=== PATIENT | female | born 1995 | race Caucasian/White ===

== ENCOUNTER 2022-09-16 11:24 | Outpatient (CLI) | payer OTHER, SELFPAY | END 2022-09-16 11:25 | disposition home or self-care (01) | PROVIDERS: PCP Family Medicine; Visit Provider Obstetrics & Gynecology | DX: O20.9 Hemorrhage in early pregnancy, unspecified (principal) | CPT/HCPCS: 84702; 86850; 86900; 86901 ==

== ENCOUNTER 2022-09-18 16:15 | Outpatient (CLI) | payer OTHER, SELFPAY | END 2022-09-18 16:16 | disposition home or self-care (01) | LOC: NFLDREF 09-19 07:01 | PROVIDERS: PCP Family Medicine; Referring Provider Family Medicine; Visit Provider Obstetrics & Gynecology | DX: O20.9 Hemorrhage in early pregnancy, unspecified (principal) | CPT/HCPCS: 84702 ==

== ENCOUNTER 2022-10-02 11:16 | Outpatient (CLI) | payer MEDICAID, SELFPAY | END 2022-10-02 11:17 | disposition home or self-care (01) | PROVIDERS: PCP Family Medicine; Visit Provider Obstetrics & Gynecology | DX: N96 Recurrent pregnancy loss (principal) | CPT/HCPCS: 82232; 82947; 83001; 84439; 84443; 85610; 85613; 85730; 86147; 88262 ==

== ENCOUNTER 2022-11-05 13:38 | Outpatient (CLI) | payer OTHER, SELFPAY ==
--- NOTE | 2022-11-05 14:00 | CRLHL7_ITS ---
For Patients: As a result of the Century Cures Act, medical imaging exams and procedure reports are released immediately into your electronic medical record. You may view this report before your referring provider. If you have questions, please contact your health care provider. CLINICAL HISTORY: Recurrent loss TECHNIQUE: Real time warren scale imaging of the fetus was performed as well as color Doppler and spectral Doppler analysis of the umbilical artery. FINDINGS: The uterus measures 7.5 x 3.9 x 4 5 centimeters endometrium measures 6 millimeters. Right ovary measures 2.3 x 1.2 x 1.2 centimeters. Left ovary appears 3.2 x 1.8 x 2 centimeters. Both ovaries are normal blood flow on color Doppler. IMPRESSION: Normal exam. Dictated by Sara Holbrook MD @ 11/06/2022 7:28:29 AM (Electronically Signed)
== END 2022-11-05 13:39 | disposition home or self-care (01) ==
LOC: US 13:40
PROVIDERS: PCP Family Medicine; Visit Provider Obstetrics & Gynecology
DX: N96 Recurrent pregnancy loss (principal)
CPT/HCPCS: 76830

== ENCOUNTER 2022-12-30 14:18 | Outpatient (CLI) | payer OTHER, SELFPAY | END 2022-12-30 14:19 | disposition home or self-care (01) | LOC: NFLDREF 01-03 15:51 | PROVIDERS: PCP Family Medicine; Visit Provider Obstetrics & Gynecology | DX: N96 Recurrent pregnancy loss (principal); D68.61 Antiphospholipid syndrome | CPT/HCPCS: 82232; 85610; 85613; 85730; 86147 ==

== ENCOUNTER 2023-03-04 15:00 | Outpatient (RCR) | payer OTHER, MEDICAID, SELFPAY ==
[2023-02-18 11:57] LABS: Basophils Absolute Auto 0.02 K/uL (0.00-0.30); Basophils Percent Auto 0.3 % (0.0-3.0); Eosinophils Absolute Auto 0.18 K/uL (0.00-0.50); Eosinophils Percent Auto 2.4 % (0.0-7.0); Hematocrit 40.9 % (33.0-51.0); Hemoglobin* 13.7 gm/dL (12.0-16.0); Immature Granulocytes Abs Auto 0.01 K/uL (0.00-0.30); Immature Granulocytes Pct Auto 0.1 %; Lymphocytes Percent Auto 25.8 % (20-44); Mean Corpuscular HGB Conc 34 gm/dL (32-36); Mean Corpuscular Hemoglobin 31 pg (26-34); Mean Corpuscular Volume 93 fL (80-100); Monocytes Percent Auto 5.2 % (0.0-11.0); Neutrophils Absolute Auto 4.87 K/uL (1.7-7.0); Neutrophils Percent Auto 66.2 % (42.0-72.0); Platelet Count* 183 K/uL (140-440); Red Blood Count 4.42 m/uL (4.00-5.20); White Blood Count* 7.36 K/uL (4.50-11.00)
[2023-02-18 12:01] LABS: Slide Review Reflex No
[2023-02-18 12:33] LABS: Iron* 113 ug/dL (37-170)
[2023-02-18 12:57] LABS: Total Iron Binding Capacity 293 ug/dL (265-497)
[2023-02-18 13:10] LABS: Ferritin* 24.6 ng/mL (6.24-137.0)
[2023-02-18 13:25] LABS: Vitamin B12* 665 pg/mL (243-894)
[2023-02-18 13:32] LABS: Percent Iron Saturation 39 % (20-50)
[2023-02-19 17:42] LABS: Folate, Serum >22.3 ng/mL (>=5.9)
[2023-02-20 00:42] LABS: B2Glycoprotein 1, IgG Antibody <10 SGU (<=20); B2Glycoprotein 1, IgM Antibody <10 SMU (<=20)
[2023-02-21 13:33] LABS: FACV Specimen Whole Blood; Factor V Leiden (F5) Mutation Negative
[2023-02-21 15:15] LABS: PT PCR Specimen Whole Blood; Prothrombin(F2)G20210A Variant Negative
[2023-02-21 16:37] LABS: Protein C Functional 104 % (83-168); Protein S Functional 68 % (57-131)
[2023-02-21 20:01] LABS: Antithrombin, Enzymatic 110 % (76-128)
== END 2023-08-17 23:59 | disposition home or self-care (01) ==
LOC: CCIC 15:00
PROVIDERS: PCP Family Medicine; Visit Provider Internal Medicine Hematology & Oncology
DX: D68.59 Other primary thrombophilia (principal); D68.61 Antiphospholipid syndrome; N96 Recurrent pregnancy loss
CPT/HCPCS: 36415; 81240; 81241; 82607; 82728; 82746; 83540; 83550; 84702; 85025; 85300; 85303; 85306; 86146; 99202; 99205; 99213; 99214; G0463

== ENCOUNTER 2023-03-05 13:54 | Outpatient (CLI) | payer MEDICAID, SELFPAY ==
--- NOTE | 2023-03-05 14:00 | CRLHL7_ITS ---
For Patients: As a result of the Century Cures Act, medical imaging exams and procedure reports are released immediately into your electronic medical record. You may view this report before your referring provider. If you have questions, please contact your health care provider. INDICATION: First trimester dating. TECHNIQUE: Ultrasound OB pelvis transvaginal. Real-time warren-scale imaging of the pelvis was performed. COMPARISON: None. FINDINGS: Intrauterine gestational sac: Present with mean sac diameter of 0.8 centimeters. Embryo present: No. Embryo cardiac activity: NA. [place] rump Length: NA. Sonographic gestational age: 5 weeks and 4 days. Yolk sac: Not visualized. Perigestational hemorrhage: There may be a trace perigestational hemorrhage measuring 0.6 x 0.5 x 0.2 centimeters.. Ovaries and adnexae: Within normal limits measuring 2.8 x 0.9 x 1.4 centimeters on the right and 3.8 x 2.2 x 2.7 centimeters on the left. Likely corpus luteal cyst in the left ovary. Simple appearing cystic structures measuring 1.1 and 0.4 centimeters adjacent to the left ovary in the left adnexa/posterior cul-de-sac. IMPRESSION: 1. An intrauterine gestational sac is present with mean sac diameter of 0.8 centimeters, suggestive of a 5 week and 4 day gestation. No embryo is visualized, which may be secondary to early gestational age. Recommend repeat examination in 14 days. 2. Likely corpus luteal cyst in the left kidney. 3. Simple appearing cysts adjacent to the left ovary in the left adnexa/posterior cul-de-sac measuring 1.1 and 0.4 centimeters. Dictated by Kai French MD @ 03/05/2023 3:08:59 PM (Electronically Signed)
== END 2023-03-05 13:55 | disposition home or self-care (01) ==
LOC: US 13:55
PROVIDERS: PCP Family Medicine; Visit Provider Obstetrics & Gynecology
DX: Z34.91 Encounter for supervision of normal pregnancy, unspecified, first trimester (principal); O34.81 Maternal care for other abnormalities of pelvic organs, first trimester; O26.831 Pregnancy related renal disease, first trimester; Z3A.01 Less than 8 weeks gestation of pregnancy
CPT/HCPCS: 76817

== ENCOUNTER 2023-03-06 15:46 | Outpatient (CLI) | payer OTHER, MEDICAID, SELFPAY | END 2023-03-06 15:47 | disposition home or self-care (01) | LOC: NFLDREF 03-11 07:58 | PROVIDERS: PCP Family Medicine; Referring Provider Family Medicine; Visit Provider Obstetrics & Gynecology | DX: O20.9 Hemorrhage in early pregnancy, unspecified (principal) | CPT/HCPCS: 84702; 84703 ==

== ENCOUNTER 2023-03-11 11:54 | Outpatient (CLI) | payer OTHER, MEDICAID, SELFPAY ==
--- NOTE | 2023-03-11 12:15 | CRLHL7_ITS ---
For Patients: As a result of the Century Cures Act, medical imaging exams and procedure reports are released immediately into your electronic medical record. You may view this report before your referring provider. If you have questions, please contact your health care provider. INDICATION: Follow up viability COMPARISON: 03/05/2023 TECHNIQUE: Real-time warren-scale imaging of the pelvis was performed. FINDINGS: Sonographic imaging demonstrates a single living intrauterine gestation. The embryo demonstrates a regular cardiac rate measuring 110 beats per minute. The embryo`s crown-rump length measurement of 0.4 cm corresponds to a gestational age of 6 weeks 0 days with a sonographic due date of 11/04/2023. There is a normal-appearing yolk sac. There are no gross abnormalities noted within the embryo at this early state of development. The gestational sac has a normal appearance. There is no evidence of a perigestational hemorrhage. The amount of fluid within the sac appears appropriate for gestational age. The cervix is closed. The myometrium appears normal. The ovaries are of normal size. Corpus luteal cyst left ovary. There are no suspicious fluid collections noted in the cul-de-sac. IMPRESSION: Single living intrauterine with sonographic gestational age 6 weeks 0 days and sonographic due date 11/04/2023. Dictated by Dar Wright MD @ 03/11/2023 12:37:12 PM (Electronically Signed)
== END 2023-03-11 11:55 | disposition home or self-care (01) ==
LOC: US 11:54
PROVIDERS: PCP Family Medicine; Visit Provider Registered Nurse
DX: Z34.91 Encounter for supervision of normal pregnancy, unspecified, first trimester (principal); Z3A.01 Less than 8 weeks gestation of pregnancy
CPT/HCPCS: 76817; 86703; 86706; 86803; 86850; 86900; 86901; 87086; 87340; 87491; 87591

== ENCOUNTER 2023-03-11 14:49 | Outpatient (CLI) | payer OTHER, MEDICAID, SELFPAY | END 2023-03-11 14:50 | disposition home or self-care (01) | LOC: NFLDREF 03-12 10:47 | PROVIDERS: PCP Family Medicine; Visit Provider Registered Nurse | DX: Z34.81 Encounter for supervision of other normal pregnancy, first trimester (principal) | CPT/HCPCS: 86592; 86703; 86704; 86706; 86762; 86787; 86803; 86850; 86900; 86901; 87086; 87340; 87491; 87591 ==

== ENCOUNTER 2023-05-07 10:11 | Outpatient (CLI) | payer OTHER, SELFPAY | END 2023-05-07 10:12 | disposition home or self-care (01) | PROVIDERS: PCP Family Medicine; Visit Provider Obstetrics & Gynecology | DX: Z34.92 Encounter for supervision of normal pregnancy, unspecified, second trimester (principal); Z3A.14 14 weeks gestation of pregnancy; D68.61 Antiphospholipid syndrome | CPT/HCPCS: 82565; 82570; 84156; 84450; 84460 ==

== ENCOUNTER 2023-05-15 15:00 | Outpatient (CLI) | payer MEDICAID, SELFPAY | END 2023-05-15 15:01 | disposition home or self-care (01) | LOC: NFLDREF 05-16 06:36 | PROVIDERS: PCP Family Medicine; Referring Provider Family Medicine; Visit Provider Obstetrics & Gynecology | DX: O99.112 Other diseases of the blood and blood-forming organs and certain disorders involving the immune mechanism complicating pregnancy, second trimester (principal); D68.61 Antiphospholipid syndrome | CPT/HCPCS: 84450; 84460 ==

== ENCOUNTER 2023-05-22 15:32 | Outpatient (CLI) | payer OTHER, SELFPAY | END 2023-05-22 15:33 | disposition home or self-care (01) | LOC: NFLDREF 05-26 07:09 | PROVIDERS: PCP Family Medicine; Referring Provider Family Medicine; Visit Provider Obstetrics & Gynecology | DX: R74.01 Elevation of levels of liver transaminase levels (principal) | CPT/HCPCS: 80074; 80076; 80306 ==

== ENCOUNTER 2023-05-22 15:33 | Outpatient (CLI) | payer OTHER, SELFPAY ==
--- NOTE | 2023-05-22 16:00 | US_ITS ---
Patient: HEIDI CRUZ Facility:?[facility] Patient ID:?[id number] Site Patient ID:?[id number]. Site :?[id number] Study:?US-Abdomen RUQ-05/22/2023 4:26:19 PM Ordering Physician:?Mallory Velásquez Final Report: INDICATION: Abnormal liver function tests. TECHNIQUE: Conventional two-dimensional grayscale ultrasound of the right upper quadrant. COMPARISON: None. FINDINGS: The gallbladder is normal, with no evidence of stones. No gallbladder wall thickening or pericholecystic fluid is demonstrated. The patient is reportedly not tender over the gallbladder. No biliary ductal dilation is evident. The common bile duct measures 4 mm. The liver is normal in size, shape and echogenicity. The pancreas is within normal limits. The right kidney is unremarkable. The visualized portion of the abdominal aorta and inferior vena cava are negative. IMPRESSION: Negative right upper quadrant ultrasound. Dictated by Reece Paz MD @ 05/25/2023 7:44:56 AM Signed by:?Reece Paz MD @05/25/2023 7:44:56 AM (Electronic Signature)
== END 2023-05-22 15:34 | disposition home or self-care (01) ==
LOC: US 15:33
PROVIDERS: PCP Family Medicine; Visit Provider Obstetrics & Gynecology
DX: R74.01 Elevation of levels of liver transaminase levels (principal)
CPT/HCPCS: 76705; 80076; 80306

== ENCOUNTER 2023-06-26 04:14 | Emergency (ER) | payer OTHER, SELFPAY ==
[2023-06-26 04:25] VITALS: BP 121/77; PULSE 82; RESP 20; TEMP 36.6; O2SAT 99; BMI 27.0
--- NOTE | 2023-06-26 04:26 | ED_ITS ---
HPI - General Adult General Chief complaint: Dizziness/Vertigo Stated complaint: 21 wks /dizziness Time Seen by Provider: 06/26/23 04:26 History of Present Illness HPI narrative: Pt aox4, ABCs intact. Pt arrives with for evaluation of dizziness that suddenly started at 0200 when she rolled over in bed. She states that everything is just spinning and she feels lightheaded. She states that she only has symptoms when she lays down. 28-year-old woman presenting to the emergency department with concern of dizziness. Things are spinning and she feels lightheaded. Worse with movement. Settles when she is still. 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 This would be about 2-1/2 hours prior to arrival in the emergency department. With further questioning and demonstration during interview, worse when tips her head somewhat back but mostly when rotated to the right. No complaint of headache or loss of vision. Underlying history of POTS. Related Data Home Medications ?Medication ?Instructions ?Recorded ?Confirmed vitamins no.68-iron 28 1 cap PO QDAY 10/02/22 07/18/23 mg-folate no.6 1 mg-dha 400 mg capsule acetaminophen 325 mg capsule 325 mg PO ONCE PRN 02/18/23 07/18/23 (Tylenol) aspirin 81 mg tablet,delayed 81 mg PO QDAY 02/18/23 07/18/23 release (Adult Aspirin Regimen) enoxaparin 40 mg/0.4 mL 40 mg subcut QDAY 03/11/23 07/18/23 subcutaneous syringe (Lovenox) Previous Rx's ?Medication ?Instructions ?Recorded promethazine 12.5 mg tablet 12.5 mg PO Q6H PRN nausea and 04/09/23 vomiting #30 tabs Allergies Allergy/AdvReac Type Severity Reaction Status Date / Time Sulfa (Sulfonamide Allergy Severe eye Verified 07/18/23 15:02 Antibiotics) swelling from sulfa drops Review of Systems Status of ROS: Reports: 6 or more systems reviewed and unremarkable except as noted in History and below [facility] Medical History POTS (postural orthostatic tachycardia syndrome) ?G90.A - Postural orthostatic tachycardia syndrome [POTS] (ICD-10) Surgical History Varicose vein of leg ?I83.90 - Asymptomatic varicose veins of unspecified lower extremity (ICD-10) H/O dilation and curettage ?Z98.890 - Other specified postprocedural states (ICD-10) [place] teeth extracted ?K08.409 - Partial loss of teeth, unspecified cause, unspecified class (ICD- 10) Family History Maternal Grandfather Bladder cancer Maternal Grandmother Multiple sclerosis Family/Other Epilepsy Social History What is your current living situation?: I presently have a place to live Problems where you live: no known problems In the past 12 months, utilities in danger of being shut off: no In past 12 months, lack of transportation kept you from medical appts, meetings, work, or getting things needed for daily living: no How hard is it for you to pay for the very basics like food, housing, medical care, and heating: not applicable In the past 12 mos, have been you worried that your food would run out before you had money to buy more?: never true In the past 12 mos, the food you bought just didn't last and you didn't have money to buy more?: never true Smoking Status: Never smoker How often do you have a drink containing alcohol: never AUDIT-C Alcohol total score: 0 Non-prescribed substance use: denies use How often does anyone, including family, friends and others, physically hurt you : never How often does anyone, including family, friends and others, insult or talk down to you: never How often does anyone, including family, friends and others, threaten you with harm: never How often does anyone, including family, friends and others, scream or curse at you: never Little interest or pleasure in doing things: not at all Feeling down, depressed, or hopeless: not at all Exam Narrative: Exam Narrative: Pleasant. Appears a little uncomfortable. Skin is warm and dry. Does not sound to be congested in the nasopharynx in particular. No facial swelling erythema or tenderness. It TMs appear to be clear of fluid. Cranial nerves 2- 12 intact. Neck is supple. Heart in for regular rate and rhythm. Is breathing easily. No nystagmus. Rotational movement of the head to the right reportedly reproduces some of this dizziness. HINTS was not attempted. Reportedly worse also when transitioning to a laying position. Const: Documenting provider has reviewed patient's vital signs: yes Course Vital Signs Vital signs: Initial Vital Signs Temperature 98 F 06/26/23 04:25 Temperature Source Temporal Artery Scan 06/26/23 04:25 Pulse Rate 82 06/26/23 04:25 Pulse Rhythm Regular 06/26/23 04:25 Pulse Strength 3+ Normal 06/26/23 04:25 Respiratory Rate 20 06/26/23 04:25 Blood Pressure 121/77 06/26/23 04:25 Blood Pressure Mean 91 06/26/23 04:25 Blood Pressure Position Sitting 06/26/23 04:25 Pulse Oximetry 99 06/26/23 04:25 Oxygen Delivery Method Room Air 06/26/23 04:25 Vital Signs Temperature 98 F 06/26/23 04:25 Pulse Rate 82 06/26/23 04:25 Respiratory Rate 20 06/26/23 04:25 Blood Pressure 121/77 06/26/23 04:25 Pulse Oximetry 99 06/26/23 04:25 Oxygen Delivery Method Room Air 06/26/23 04:25 Temperature 98 F 06/26/23 04:25 Pulse Rate 82 06/26/23 04:25 Respiratory Rate 20 06/26/23 04:25 Blood Pressure 121/77 06/26/23 04:25 Pulse Oximetry 99 06/26/23 04:25 Oxygen Delivery Method Room Air 06/26/23 04:25 Medical Decision Making MDM Narrative Medical decision making narrative: I am reassured by the improvement of the symptoms when still and clearly exacerbated with motion and repeatedly reproducible. I think it is less likely that this is central. complicates treatment a little bit as I think Valium or possibly other benzodiazepine would be most effective here. Does have antihistamine promethazine available as antiemetic. This could be alternative I suppose to meclizine and may be helpful in this dizziness which seems to have settled somewhat at this point. I think can be treated outpatient. Kari maneuvers might be helpful here particularly with reliably reproducible exacerbation of dizziness. See patient discharge plan for further discussion/plan Medical Records Medical records reviewed: Yes I reviewed the patient's medical records Discharge Plan Discharge Clinical Impression: Benign paroxysmal positional vertigo Patient Disposition: Home w/ Parent or Adult Condition: Stable Additional Instructions: Stay well-hydrated. Take care in transitions. You might consider taking your promethazine 3 times daily regularly over the next 2-3 days. Since your symptoms are to the right side with movement, try these Kari maneuvers focused on the right side as indicated in the title on your handouts. You might also benefit from follow-up with physical therapy. Could get referral from your doctor. Be seen for intractable vomiting, marked headache, symptoms not resolving at rest. Prescriptions: No Action enoxaparin [Lovenox] 40 mg/0.4 mL syringe 40 mg subcut QDAY promethazine 12.5 mg tablet 12.5 mg PO Q6H PRN (Reason: nausea and vomiting) Qty: 30 0RF [id number] no6-dha 28 mg iron- 1 mg-400 mg capsule 1 cap PO QDAY aspirin [Adult Aspirin Regimen] 81 mg tablet,delayed release (DR/EC) 81 mg PO QDAY acetaminophen [Tylenol] 325 mg capsule 325 mg PO ONCE PRN Follow Up/Referrals: Kavya Daniel MD [Primary Care Provider] - Stand Alone Forms: [employer] Info Instructions
== END 2023-06-26 05:06 | disposition home or self-care (01) ==
LOC: ED 05:02
PROVIDERS: Emergency Provider Family Medicine; PCP Family Medicine
DX: H81.13 Benign paroxysmal vertigo, bilateral (principal)
CPT/HCPCS: 99283; 99284

== ENCOUNTER 2023-08-15 09:00 | Outpatient (CLI) | payer OTHER, SELFPAY | END 2023-08-15 09:01 | disposition home or self-care (01) | LOC: NFLDREF 08-17 03:04 | PROVIDERS: PCP Family Medicine; Referring Provider Family Medicine; Visit Provider Obstetrics & Gynecology | DX: Z34.93 Encounter for supervision of normal pregnancy, unspecified, third trimester (principal); Z3A.28 28 weeks gestation of pregnancy | CPT/HCPCS: 76816; 86592 ==

== ENCOUNTER 2023-08-18 06:00 | Outpatient (RCR) | payer OTHER, SELFPAY | END 2024-02-14 23:59 | disposition home or self-care (01) | LOC: CCIC 06:00 | PROVIDERS: PCP Family Medicine; Visit Provider Internal Medicine Hematology & Oncology | DX: D68.59 Other primary thrombophilia (principal); D68.61 Antiphospholipid syndrome; N96 Recurrent pregnancy loss; Z79.82 Long term (current) use of aspirin ==

== ENCOUNTER 2023-09-12 08:55 | Outpatient (CLI) | payer OTHER, SELFPAY ==
--- NOTE | 2023-09-12 09:15 | CRLHL7_ITS ---
For Patients: As a result of the Century Cures Act, medical imaging exams and procedure reports are released immediately into your electronic medical record. You may view this report before your referring provider. If you have questions, please contact your health care provider. INDICATION: antiphospholipid syndrome TECHNIQUE: Real time warren scale imaging of the fetus was performed. COMPARISON: 08/15/2023 FINDINGS: Sonographic imaging demonstrates a single living intrauterine gestation. Fetus demonstrates a regular cardiac rate of 141 beats per minute. Fetus has a breech position. The placenta lies posteriorly. Amniotic fluid volume appears normal and there is a single deepest pocket of 3.8 cm. The estimated weight is 2125gm which lies at the 58th %. On the prior OB ultrasound dated 08/15/2023 the estimated weight was at the 86th percentile. BPD 67th percentile. HC 62nd percentile. AC 45th percentile. FL 73rd percentile. The fetus was active and demonstrated normal breathing movements. There was normal flexion and extension of the trunk and extremities. IMPRESSION: Normal biophysical profile score 8/8. Sonographic gestational age 34 weeks 3 days and a sonographic due date 10/21/2023. Sonographic age 13 days ahead of the clinical age. Estimated weight 58th percentile. Abdominal circumference 45th percentile. Dictated by Dar Wright MD @ 09/12/2023 11:10:37 AM (Electronically Signed)
== END 2023-09-12 08:56 | disposition home or self-care (01) ==
LOC: US 08:55
PROVIDERS: PCP Family Medicine; Visit Provider Obstetrics & Gynecology
DX: O26.893 Other specified pregnancy related conditions, third trimester (principal); D68.61 Antiphospholipid syndrome; Z3A.34 34 weeks gestation of pregnancy
CPT/HCPCS: 76816; 76819

== ENCOUNTER 2023-09-19 07:58 | Outpatient (CLI) | payer OTHER, SELFPAY ==
--- NOTE | 2023-09-19 08:15 | CRLHL7_ITS ---
For Patients: As a result of the Century Cures Act, medical imaging exams and procedure reports are released immediately into your electronic medical record. You may view this report before your referring provider. If you have questions, please contact your health care provider. INDICATION: Antiphospholipid antibody syndrome COMPARISON: 09/12/2023 TECHNIQUE: Real time warren scale imaging of the fetus was performed. Without non-stress testing. FINDINGS: Sonographic imaging demonstrates a single living intrauterine gestation. Fetus demonstrates a regular cardiac rate of 142 beats per minute. Fetus has a breech position. The amniotic fluid volume appears normal and there is a single deepest pocket measurement of 3.4 cm. The fetus was active and demonstrated normal breathing movements. There was normal flexion and extension of the trunk and extremities. IMPRESSION: Normal biophysical profile score of 8 out of 8. Dictated by Dar Wright MD @ 09/19/2023 10:14:56 PM (Electronically Signed)
== END 2023-09-19 07:59 | disposition home or self-care (01) ==
LOC: US 07:59
PROVIDERS: PCP Family Medicine; Visit Provider Obstetrics & Gynecology
DX: O26.899 Other specified pregnancy related conditions, unspecified trimester (principal); D68.61 Antiphospholipid syndrome
CPT/HCPCS: 76819

== ENCOUNTER 2023-09-26 09:05 | Outpatient (CLI) | payer OTHER, SELFPAY ==
--- NOTE | 2023-09-26 09:15 | CRLHL7_ITS ---
For Patients: As a result of the Century Cures Act, medical imaging exams and procedure reports are released immediately into your electronic medical record. You may view this report before your referring provider. If you have questions, please contact your health care provider. INDICATION: antiphospholipid syndrome COMPARISON: 09/19/2023 TECHNIQUE: Real time warren scale imaging of the fetus was performed. Without non-stress testing. FINDINGS: Sonographic imaging demonstrates a single living intrauterine gestation. Fetus demonstrates a regular cardiac rate of 135 beats per minute. Fetus has a breech position. The amniotic fluid volume appears normal and there is a single deepest pocket measurement of 3.0 cm. The fetus was active and demonstrated normal breathing movements. There was normal flexion and extension of the trunk and extremities. IMPRESSION: Normal biophysical profile score of 8 out of 8. Dictated by Dar Wright MD @ 09/26/2023 10:13:50 AM (Electronically Signed)
== END 2023-09-26 09:06 | disposition home or self-care (01) ==
LOC: US 09:05
PROVIDERS: PCP Family Medicine; Visit Provider Obstetrics & Gynecology
DX: Z34.90 Encounter for supervision of normal pregnancy, unspecified, unspecified trimester (principal); D68.61 Antiphospholipid syndrome
CPT/HCPCS: 76819

== ENCOUNTER 2023-10-03 11:15 | Outpatient (CLI) | payer OTHER, SELFPAY | END 2023-10-03 11:16 | disposition home or self-care (01) | LOC: NFLDREF 10-05 06:41 | PROVIDERS: PCP Family Medicine; Referring Provider Family Medicine; Visit Provider Obstetrics & Gynecology | DX: O41.03X0 Oligohydramnios, third trimester, not applicable or unspecified (principal); Z3A.35 35 weeks gestation of pregnancy | CPT/HCPCS: 76819; 87081; 87653 ==

== ENCOUNTER 2023-10-04 11:35 | Outpatient (CLI) | payer OTHER, SELFPAY ==
[2023-10-04 11:54] VITALS: BP 120/71; PULSE 83
[2023-10-04 11:56] VITALS: RESP 18; TEMP 36.6
[2023-10-04] MEDS: BETAMETHASONE SOD PHOS/ACETATE 6 MG/ML ML 12 MG IM (12:12)
--- NOTE | 2023-10-04 15:39 | PC.OBNST ---
NST Note NST Note Start: 10/04/23 12:01 Freq: ONCE Status: Active Protocol: Document 10/04/23 12:40 MICHELLE (Rec: 10/04/23 15:39 JRMarina [id number]) NST Note 3 Para (# of births) 0 EDC 11/03/23 Gestational Age In Weeks & Days 35 Weeks & 5 Days Patient Presented with Complaint(s) of Decreased movement Other Complaints Oligohydramnios and Antiphospholipid Reactive Yes Appropriate for Gestational Age Yes RN Lorenzo Carty RN Date 10/04/23 Reactive Yes Appropriate for Gestational Age Yes NAIMA Martinez RN Date 10/04/23 OB NST charge Yes Complete NST Note via Write Note Yes The provider's electronic signature indicates the NST is reactive/appropriate for gestational age. *Note to provider: If an addendum is required, open the patient's chart and click on the note under the Nurse/Allied Health tab.
== END 2023-10-04 12:40 | disposition home or self-care (01) ==
LOC: OB CLI 11:36 → OB 11:45
PROVIDERS: PCP Family Medicine; Visit Provider Obstetrics & Gynecology
DX: O36.8130 Decreased fetal movements, third trimester, not applicable or unspecified (principal); Z3A.35 35 weeks gestation of pregnancy
CPT/HCPCS: 59025; G0463; J0702

== ENCOUNTER 2023-10-06 05:12 | Inpatient (IN) | payer OTHER, SELFPAY ==
[2023-10-06] VITALS (36 sets, daily range): BP systolic 89–121; BP diastolic 51–81; PULSE 50–88; RESP 15–20; TEMP 36.4–36.9; O2SAT 95–99; BMI 30.2
[2023-10-06] MEDS: LACTATED RINGERS 1000 ML 1,000 ML 1200 ML IV ×3 (05:15→08:18)
[2023-10-06 05:58] LABS: Basophils Absolute Auto 0.02 K/uL (0.00-0.30); Basophils Percent Auto 0.2 % (0.0-3.0); Eosinophils Absolute Auto 0.04 K/uL (0.00-0.50); Eosinophils Percent Auto 0.4 % (0.0-7.0); Hematocrit 35.9 % (33.0-51.0); Hemoglobin* 12.2 gm/dL (12.0-16.0); Immature Granulocytes Pct Auto 2.8 %; Lymphocytes Absolute Auto 2.52 K/uL (0.90-2.90); Lymphocytes Percent Auto 23.2 % (20-44); Mean Corpuscular HGB Conc 34 gm/dL (32-36); Mean Corpuscular Hemoglobin 32 pg (26-34); Mean Corpuscular Volume 95 fL (80-100); Monocytes Percent Auto 11.1 % (0.0-11.0); Neutrophils Absolute Auto 6.77 K/uL (1.7-7.0); Neutrophils Percent Auto 62.3 % (42.0-72.0); Platelet Count* 162 K/uL (140-440); RDW Coefficient of Variation % 12.7 % (11.5-15.5); Red Blood Count 3.79 m/uL (4.00-5.20); White Blood Count* 10.85 K/uL (4.50-11.00)
[2023-10-06 06:00] LABS: Slide Review Reflex No
--- NOTE | 2023-10-06 07:18 | W.PM.LDBA ---
Subjective History of Present Illness Time Seen by Provider: 07:18 Date Seen: 10/06/23 Narrative: Patient is being admitted to Labor and Delivery for schedule delivery due to oligohydramnios diagnosed on 10/03/23 and persistent breech presentation. She is a 28 year old at 36.0 weeks gestation. Her full history and physical was dictated by Dr. Velásquez on 10/03/23. Please see this for details. S/p BMZ benefit. Last Lovenox Friday Morning. Now 24 hr from last dose. No interval change since last clinic visit. Active movement. Denies Ctx, LOF, vaginal bleeding or abnormal vaginal discharge. BSUS this AM confirmed tucker breech position. SDP 1.6 cm. Specific Issues/Plans G 3 P 0020 : Jin 1. Antiphospholipid antibody syndrome. Continue daily baby aspirin. Referral to perinatology placed. Advised patient to begin Lovenox 40 mg daily. Recommend level 2 ultrasound at 20 weeks Recommend growth ultrasound between 28 and 34 weeks Twice weekly testing to begin at 32 weeks: Testing Form completed Obtain baseline pre-e labs: Done 05/06, within normal limits aside from AST (44) > AST 67 on recheck SSA/SSB antibodies obtained at MFM visit on 04/22/23: [] Level II ultrasound on 06/04/23: EFW 87%tile, AC 62%tile. Posterior placenta. 3 vessel cord. MVP 6.1 cm. Cervix 4.16 cm. No anomalies. IOL at 39 weeks given timing of discontinuation of Lovenox for regional anesthesia administration # [place] at 35w4d > planned delivery at 36w0d GA. BMZ given. 2. Father of baby with epilepsy. Referral placed to perinatology 3. History of to losses. Invited her to schedule more frequent visits if needed. 4.MFM on 04/22/23: 12w 1d. Normal US. Normal NT. Posterior placenta. NIPT completed: low risk, XX 04/29 Offer AFP 15-20wks: Declined Comprehensive US recommended at 18wks: No anomalies commonly detected by ultrasound were identified. EFW 87th percentile, AC at the 62nd percentile. No previa. Three-vessel cord. MVP 6.1 cm. Cervix 4.16 cm. 5. Transaminitis - AM curbsided MFM-for-U on 05/20 (Dr. Jeronimo) 05/22/23 f/u LFTs, hepatitis panel, UDS - all normal f/u RUQ US - Normal will hold for now due to normal labs - pt is asymptomatic consider 6. Persistent breech malpresentation at 34 weeks - continue to reassess at upcoming US Rh Positive: No rhogam Flu: Administered on 03/11/2023 Covid: Completed in boosted x1. Recommended booster. Patient declines for now. Tdap: 08/28/23 hgb: 09/19/23 US - 08/15/23: EFW 86%tile, AC 56%tile, SDP 2.8 cm. OB - Problem Based A/P Additional Plan (1) Breech presentation: Status: Acute (2) Oligohydramnios: Status: Acute Plan - The patient was consented for section and blood. She understands that the four main categories of risk include pain, bleeding, infection, and damage to surrounding structures. Intraoperative pain will be manage with spinal anesthesia or epidural anesthesia. If that those are not effective or not appropriate for the clinical situation, general anesthesia will be administered. Immediately postop, TAP block will be performed. Throughout her recovery course, she will have on PO pain medications such as ibuprofen, Tylenol, and oxycodone. Regarding infection, she understands that we will be delivering appropriate antibiotics, however that the risk of infection following section still is approximately 5%. She understands that though the risk is very low that there is always a risk of damage to the bladder, uterus, ovaries, fallopian tubes, bowels, ureters, or even the fetus. She understands that most injuries can be addressed at the time of surgery, however, such an injury may require additional surgeries to fix. Lastly, she understands that a section carries a risk of bleeding, and that while this bleeding can be addressed with multiple medical and surgical modalities (including hysterectomy), that there is the possibility of needing a blood transfusion. Lastly, she understands that a section does increase risks for future pregnancies and deliveries including, but not limited to, the risk of uterine rupture or placenta accreta. I discussed with that there is a higher risk of respiratory issues due to persistent breech, , and delivery. She will need anticoagulation . - Hgb/plt: 12.2/162 - PT/INR: 0.99 - APTT: 25 - Fibrinogen: 418 - T&S: A+, antibody negative - Plan: Will proceed with planned delivery for persistent breech presentation and oligohydramnios at 36 weeks. OB Exam Physical Exam Vital signs: Temp Pulse BP Pulse Ox 97.6 F 88 118/71 96 10/06/23 06:11 10/06/23 05:59 10/06/23 05:59 10/06/23 06:00 Narrative: Physical exam: General: No acute distress Psych: Alert and oriented x4, full affect HEENT: Normocephalic, atraumatic. Erythema of the left conjunctiva from infection. Currently on erythromycin Lungs: Unlabored breathing Abdomen: Soft, no tenderness, rebound, or guarding, no masses. Multiple ecchymoses in various states of healing from Lovenox injection. Breasts: no nodules or masses, no nipple discharge, no axillary adenopathy Lower extremities: No edema or erythema Pelvic exam: Deferred
[2023-10-06 07:19] LABS: INR 0.99 (0.91-1.10); Partial Thromboplastin Time* 25 Seconds (23-33); Prothrombin Time 13.7 Seconds
[2023-10-06 07:27] LABS: Fibrinogen* 418 mg/dL (200-450)
[2023-10-06] MEDS: CEFAZOLIN 2 GM INJ IVP (07:30)
--- NOTE | 2023-10-06 08:21 | P.OBPRC_ITS ---
Procedure Time Seen by Provider: 07:30 Date of procedure: 10/06/23 Pre-op diagnosis: 1. Malpresentation - tucker breech 2. Oligohydramnios 3. Maternal anti phospholipid syndrome Post-op diagnosis: same Procedure Done: Global Will [facility] bill your pro fee for this procedure?: Yes Urine Output (mL): 300 Procedure Description: DELIVERY BY SECTION Date of Service: 10/06/23 Delivery time: 743 Summary: Admitted for scheduled primary delivery at 36.0 weeks due to tucker breech presentation and oligohydramnios, primary lower uterine transverse section, Pfannenstiel, Closed with sutures, QBL 271 cc, No complications, Findings: Normal uterus, bilateral ovaries and right fallopian tube. Subcentimeter paratubal cyst on left fallopian tube. 7/8, weight 2640 g. Primary Indication: 1. Malpresentation - tucker breech 2. Oligohydramnios 3. Maternal anti phospholipid syndrome Procedures: Primary Lower uterine transverse section Specimens Removed: Placenta Surgeon: Kim Ribeiro MD Brim Ironer Hand: RANDEE Wilson Anesthesia: Spinal, TAP Report: Prophylactic antibiotic, 2 g of Ancef was given before patient was taken to OR. After arrival to the operating room patient was placed in the supine position with left lateral tilt after administration of spinal anesthesia. Laparotomy A pfannenstiel incision was made through the anterior abdominal wall with #10 scalpel approximately 2 cm above the pubic symphysis. The incision was extended sharply with the #10 scalpel through the subcutaneous tissue to the level of fascia. The fascia was entered sharply with a #10 scalpel (Pfannenstiel) in the midline and extended in semi-elliptical fashion with bluntly. The rectus muscles were in the midline bluntly with digits. The peritoneum was then entered bluntly. The peritoneal incision was then extended superiorly and inferiorly under direct visualization with care being taken to avoid bladder and bowel. No adhesions were noted. The peritoneal incision was enlarged bluntly by lateral traction from the surgeon's and promotions assistant sales marketing's hand. Elton retractor was inserted into the abdomen. Delivery A bladder flap was not developed as bladder was low off the lower uterine segment. A low transverse hysterotomy was made then with #10 scalpel and extended laterally and cephalad with fingers in a low transverse fashion with Manu Stevenson technique with care being taken to avoid injury to the fetus. The amniotic cavity (membrane) was then entered with spontaneous rupture of membrane, and the amniotic fluid was noted to be clear. buttocks were palpated and delivered gradually through the hysterotomy fundal pressure was continue in both legs were extended using the Pinard maneuver. With gentle pressure the legs and body gradually delivered once the scapula could be seen that the baby was gently rotated and both arms were delivered using the loveset maneuver. Maintaining head flexion, head was delivered without difficulty using the [id number]-[id number]-[id number] maneuver. With delivery of the baby, no extension was noted. Baby handed off to pediatric team for assessment after delivery. Placenta was delivered spontaneously with steady traction on cord and manual separation of placenta from uterine wall. Closure Uterine cavity was cleaned after placental delivery with lap sponge x 3. The hysterotomy was closed in two layers with stitches using 0 vicryl with continuous locking stitches and 0 monocryl in a continuous non locking manner. One [id number] was placed at the right uterine angle. Hemostasis was achieved as needed with electrocautery and Christiano applied x1. The ovaries/tubes/uterine surface were evaluated. Findings noted above. Elton retractor removed and hemostasis was confirmed again. Fascia was closed with running stitches using 0 vicryl. Subcutaneous layer was irrigated. Hemostasis was checked for and found to be adequate. The subcutaneous layer was closed with running 2-0 chromic sutures. The skin was closed with monocryl subcuticular sutures. The incision was cleaned, exofin applied and Mepilex dressing placed. The procedure considered terminate at this time. Intraoperative Complications: None QBL: 271 cc Uterotonics: 30u of pitocin Disposition: The patient tolerated the procedure well. She was recovered in Obstetric PACU f or close monitoring in stable condition, with a contracted uterus and normal transvaginal bleeding. The was sent to mother's bedside. The placenta was sent to pathology due to delivery, oligohydramnios, maternal antiphospholipid syndrome on Lovenox during . Debrief with OR team performed and specimen reviewed at the conclusion of the procedure. Pathology: specimen obtained, sent to pathology Surgery Debrief Performed: Yes
[2023-10-06] MEDS: KETOROLAC 30 MG/ML inj IVP ×3 (08:30→20:54)
--- NOTE | 2023-10-06 08:49 | W.ANESCHARGE ---
Anesthesia Charges Start Date/Time Anesthesia Start Date: 10/06/23 Anesthesia Start Time: 07:20 Stop Date/Time Anesthesia Stop Date: 10/06/23 Anesthesia Stop Time: 08:44
--- NOTE | 2023-10-06 09:19 | W.ANESCHARGE ---
Anesthesia Charges Start Date/Time Anesthesia Start Date: 10/06/23 Anesthesia Start Time: 07:20 Stop Date/Time Anesthesia Stop Date: 10/06/23 Anesthesia Stop Time: 08:44
--- NOTE | 2023-10-06 09:21 | P.NB_ITS ---
Nerve Block Nerve Block Time Seen by Provider: 08:35 Date Seen: 10/06/23 Type of block requested by surgeon for post-operative analgesia: TAP Side: bilateral Time out performed: Yes Verification of patient name: Yes Verification of date of : Yes Site marking: site marked Name of person performing procedure: Zen Continuous monitoring Was continuous monitoring of O2 sat, B/P, media monitor, recorded every 15 minutes?: Yes Procedure Checklist: sterile prep, needles and gloves Ultrasound guided. Images saved: Yes Medications given in 5ml increments after negative aspiration: Marcaine %: 0.25 mL: 30 Needle gauge: 20 and Exparel mL: 10 Patient tolerated procedure well: Yes Additional comments: Needle noted between internal oblique and transversus abdominus. Local spread visualized Block Charges Block Charge (with Pro Fee): TAP Bilateral Use of Ultrasound Machine for Block: Yes- US Guidance/pain block
[2023-10-06] MEDS: ENOXAPARIN 40 MG/0.4 ML INJ SUBCUT (20:54)
[2023-10-07] VITALS (8 sets, daily range): BP systolic 103–125; BP diastolic 66–83; PULSE 65–76; RESP 15–18; TEMP 36.4–36.7; O2SAT 95–100
[2023-10-07] MEDS: KETOROLAC 30 MG/ML inj IVP ×3 (02:35→15:02)
[2023-10-07 05:29] LABS: Basophils Percent Auto 0.1 % (0.0-3.0); Eosinophils Percent Auto 0.3 % (0.0-7.0); Hematocrit 35.9 % (33.0-51.0); Hemoglobin* 11.8 gm/dL (12.0-16.0); Lymphocytes Percent Auto 16.3 % (20-44); Mean Corpuscular HGB Conc 33 gm/dL (32-36); Mean Corpuscular Hemoglobin 32 pg (26-34); Mean Corpuscular Volume 97 fL (80-100); Monocytes Percent Auto 9.3 % (0.0-11.0); Platelet Count* 156 K/uL (140-440); RDW Coefficient of Variation % 12.8 % (11.5-15.5); Red Blood Count 3.71 m/uL (4.00-5.20); White Blood Count* 16.29 K/uL (4.50-11.00)
[2023-10-07 05:37] LABS: Slide Review Reflex No
--- NOTE | 2023-10-07 08:05 | PM.OBPNVD1 ---
OB - PN:Subj Subjective Date Seen: 10/07/23 Narrative: Marycarmen is a 28 y.o. who was admitted to [facility] for primary C/S for breech.? She had an uncomplicated primary .? ? The patient feels well.? The pain is well controlled with current medications.? She has no new complaints.? She is breast feeding and reports things are going well, baby has had some lower blood sugar readings and they are supplementing for this reason.? the patient has done well.? Vitals have been stable.? She has remained afebrile.? Has a good appetite, is tolerating a general diet.? She is voiding without difficulty.? She is passing gas and has not had a bowel movement.? She is ambulating and denies any dizziness.? Has Small amount of rubra lochia.? OB - PN: Obj Exam Physical Exam: Vital signs: Temp Pulse Resp BP Pulse Ox O2 Del Method 98.1 F 65 18 103/66 96 Room Air 10/07/23 04:30 10/07/23 04:30 10/07/23 07:50 10/07/23 04:30 10/07/23 04:30 10/07/23 04:30 Narrative: GENERAL APPEARANCE:? normal affect, alert, no distress MOOD:? appropriate CHEST:? clear to auscultation HEART:? regular rate and rhythm ABDOMEN:? soft, non-tender the uterine fundus is firm At Umbilicus, Midline and is appropriate for the stage of recovery. EXTREMITIES:? normal and trace edema Incision: dressing clean, dry and intact, due to be removed today. Urinary Catheter Management: 2-way Urethral: Cath placed during this visit: yes, but has since been removed by the nurse Reason for continuing: decision to DC catheter Insertion date: 10/06/23 Insertion time: 07:25 Removal date: 10/06/23 Removal time: 15:37 OB - PN: Obj Data Labs Labs: Laboratory Results - last 24 hr 10/07/23 05:20 WBC 16.29 H RBC 3.71 L Hgb 11.8 L Hct 35.9 MCV 97 MCH 32 MCHC 33 RDW Coeff of Ronny 12.8 Plt Count 156 Neut % (Auto) 72.0 Lymph % (Auto) 16.3 L [place] % (Auto) 9.3 Eos % (Auto) 0.3 Baso % (Auto) 0.1 Neut # (Auto) 11.70 H Lymph # (Auto) 2.70 [place] # (Auto) 1.50 H Eos # (Auto) 0.00 Baso # (Auto) 0.00 Abs Immat Gran (auto) 0.30 Imm/Tot Granulo (auto) 2.0 OB - PN: A/P Delivery Assessment and Plan (1) Breech presentation: Status: Acute (2) Oligohydramnios: Status: Acute (3) care following delivery: Status: Acute (4) care and examination immediately after delivery: Status: Acute (5) Lactating mother: Status: Acute Plan day: 1 Plan: routine care Comments: Assessment/Plan?G 3 P 1 status post uncomplicated primary .? ?? 1.? Continue route PP cares? 2.? .? May see if desired? 3.? Anticipate discharge home tomorrow or the following day per pt preference? ?
[2023-10-07] MEDS: DOCUSATE SODIUM 100 MG CAPSULE PO (08:48)
[2023-10-07 17:47] LABS: Rapid Plasma Reagin (RPR) Non Reactive (Non Reactive)
[2023-10-07] MEDS: IBUPROFEN 600 MG TABLET PO (19:43)
[2023-10-07] MEDS: ENOXAPARIN 40 MG/0.4 ML INJ SUBCUT (19:43)
[2023-10-08 01:25] VITALS: BP 111/71; PULSE 80; RESP 16; TEMP 36.4; O2SAT 95
[2023-10-08] MEDS: IBUPROFEN 600 MG TABLET PO ×3 (01:27→14:21)
[2023-10-08] MEDS: ACETAMINOPHEN 500 MG TABLET 1000 MG PO ×2 (04:35→10:44)
--- NOTE | 2023-10-08 07:47 | PM.OBPNVD1 ---
OB - PN:Subj Subjective Date Seen: 10/15/23 Narrative: The patient feels well.? The pain is well controlled with current medications of tylenol and ibuprofen.?She does not want a RX for oxycodone. She has no new complaints.? Urinary output is adequate and she is voiding without difficulty.? Has a good appetite, is tolerating a general diet, is passing flatus, and has had a bowel movement.? Has small amount of rubra lochia.? She is ambulating well. She is and reports it is going well. some nipple tenderness noted. They are supplementing with formula after . OB - PN: Obj Exam Physical Exam: Vital signs: Temp Pulse Resp BP Pulse Ox O2 Del Method 97.6 F 80 16 111/71 95 Room Air 10/08/23 01:25 10/08/23 01:25 10/08/23 01:25 10/08/23 01:25 10/08/23 01:10/08/23 01:25 Narrative: GENERAL APPEARANCE:? normal affect, alert, no distress MOOD:? appropriate CHEST:? clear to auscultation HEART:? regular rate and rhythm ABDOMEN:? soft, non-tender the uterine fundus is 1 cm below Umbilicus, Midline and is appropriate for the stage of recovery. Moderate bruising of abdomen from Lovenox injections, but also area to the right of incision. EXTREMITIES:? normal and minimal edema Incision: Healing well, no surrounding erythema, abnormal induration or discharge. Moderate bruising of right side of incision. Urinary Catheter Management: 2-way Urethral: Cath placed during this visit: yes, but has since been removed by the nurse Reason for continuing: decision to DC catheter Insertion date: 10/06/23 Insertion time: 07: Removal date: 10/06/23 Removal time: 15:37 OB - PN: Obj Data Labs Labs: Laboratory Results - last 24 hr 10/06/23 05:50 RPR Screen Non Reactive OB - PN: A/P Delivery Assessment and Plan (1) Breech presentation: Status: Acute (2) Oligohydramnios: Status: Acute (3) care following delivery: Status: Acute (4) care and examination immediately after delivery: Status: Acute (5) Lactating mother: Status: Acute (6) delivery: Problem details: Scheduled for breech at 36w0d Status: Acute (7) delivery delivered: Status: Acute Plan day: 2 Plan: routine care Comments: plan:? Discharge home with baby wither today or tomorrow. To discuss with Peds.? Follow up in 2 weeks and 6 weeks.?Continue Lovenox for 6 weeks. Pt has 50 doses already at home, but will call if she needs more to cover the 6 weeks. Colace RX already sent. Does not desire Rx for ibuprofen or tylenol. Encouraged abdominal binder as needed for support and comfort. Encouraged pumping if giving baby supplements to equalized stimulation for supply purposes. , may see if needed? Hgb 11.8 yesterday. ? Reviewed symptoms of blood clots and to report immediately. ? ?
[2023-10-08 08:17] VITALS: BP 111/75; PULSE 84; RESP 16; TEMP 36.6; O2SAT 97
[2023-10-08] MEDS: DOCUSATE SODIUM 100 MG CAPSULE PO (08:20)
--- NOTE | 2023-10-08 13:40 | PM.OBDSVD1 ---
DS: Providers Provider Date Seen: 10/08/23 Date of admission: 10/06/23 05:12 Primary care physician: Kavya Daniel MD Admitting Clinician: Kim Ribeiro MD Attending Physician on discharge: Marcell Mcdonald CNM, APRN Date of Discharge: 10/08/23 DS: Diagnosis Discharge Diagnosis (1) delivery delivered: Status: Acute (2) delivery: Status: Acute Problem details: Scheduled for breech at 36w0d (3) Lactating mother: Status: Acute (4) care following delivery: Status: Acute (5) Antiphospholipid antibody syndrome: Status: Acute Exam Narrative: Exam Narrative: See exam from this morning. Const: Vital Signs, click to edit/add: Vital Signs - 24 hr 10/07/23 17:40 10/07/23 19:38 10/08/23 01:25 Temperature 97.7 F 97.6 F 97.6 F Pulse Rate [Pulse Oximeter] 65 76 80 Respiratory Rate 16 16 16 Blood Pressure [Ri ght Arm] 114/71 125/79 111/71 Pulse Oximetry 95 99 95 Oxygen Delivery Me thod Room Air Room Air Room Air 10/08/23 08:17 Temperature 97.9 F Pulse Rate [Pulse Oximeter] 84 Respiratory Rate 16 Blood Pressure [Ri ght Arm] 111/75 Pulse Oximetry 97 Oxygen Delivery Me thod Room Air OB - DS: Summary Hospital Course Hospital Course: The patient is a 28 year old G 3 P 0 at 36 weeks gestation that was admitted to the Center on 10/06/23 for scheduled for breech presentation with new diagnosis of oligohydramnios and history of antiphospholipid syndrome. She had an uncomplicated delivery. She delivered a viable male . She is breast and supplementing bottle. the patient has done well. She is on Lovenox prophylaxis therapy 40mg. She has 50 doses at home from a previous prescription. She has had a bowel movement and is passing gas.?The patient feels well. ?The pain is well controlled with current medications. She has no new complaints. ? the patient has done well.? Vitals have been stable.? She has remained afebrile.? Has a good appetite, is tolerating a general diet. ?She is voiding without difficulty.? She is ambulating and denies any dizziness.? Has scant amount of rubra lochia. ?She is planning not sure of contraception for prevention. Peripartum Data Infant delivery method: Primary C/S; Non-Labored Procedures: Procedures Operation Date: 10/06/23 07:15 Actual Procedure Side Surgeon p Primary Section for breech presentation Kim Ribeiro MD complications: none [place] Infant Gender: Male Discharge Plan: Home Status at Discharge Overall status at discharge: patient is progressing back to baseline Time Spent with Patient Time attestation: Total time spent providing and/or coordinating discharge services: Time spent: Less than 30 minutes Discharge Plan Discharge Disposition: Home, Self-Care Date of Admission: 10/06/23 05:12 Attending Provider on Discharge: Shaylee Mcdonald Primary Care Provider: Kavya Daniel Condition: Stable Anticipated Discharge Date/Time: 10/08/23 13:37 Discharge Medications: New docusate sodium 100 mg Capsule 100 mg PO DAILY Qty: 60 0RF Continued enoxaparin [Lovenox] 40 mg/0.4 mL syringe 40 mg subcut QDAY [id number] 28 mg iron- 1 mg-400 mg capsule 1 cap PO QDAY Discontinued aspirin [Adult Aspirin Regimen] 81 mg tablet,delayed release (DR/EC) 81 mg PO QDAY Discharge Orders: Discharge Order (Routine); Ordered 10/08/23 Ordered By: Shaylee Mcdonald Patient Education: OB [place] [facility], OB /Breast Feeding Activity Level: Activity as Tolerated Discharge Diet: Regular Follow Up Appointments: [facility] [Provider Group] Forms: [facility] Info Instructions
[2023-10-08 14:37] VITALS: BP 115/77; PULSE 76; RESP 18; TEMP 36.6; O2SAT 100
== END 2023-10-08 16:58 | disposition home or self-care (01) | DRG 787 ==
PROVIDERS: Admitting Provider Obstetrics & Gynecology; PCP Family Medicine; Visit Provider Obstetrics & Gynecology
PROC: 10D00Z1 Extraction of Products of Conception, Low, Open Approach (ICD-10-PCS; CPT 59514; principal; 2023-10-06 07:15)
DX: O32.1XX0 Maternal care for breech presentation, not applicable or unspecified (principal); D68.61 Antiphospholipid syndrome; O41.03X0 Oligohydramnios, third trimester, not applicable or unspecified; O99.12 Other diseases of the blood and blood-forming organs and certain disorders involving the immune mechanism complicating childbirth; G89.18 Other acute postprocedural pain; Z3A.36 36 weeks gestation of pregnancy; Z37.0 Single live birth
CPT/HCPCS: 01961; 36415; 64488; 76815; 76942; 85018; 85025; 85384; 85610; 85730; 86592; 86850; 86900; 86901; 88307; A9270; C9290; J0665; J0690; J1100; J1650; J1885; J2274; J2371; J2405; J2590; J7120

== ENCOUNTER 2023-10-09 20:19 | Emergency (ER) | payer OTHER, SELFPAY ==
[2023-10-09 20:22] VITALS: BP 157/98; PULSE 94; RESP 18; TEMP 36.7; O2SAT 97; BMI 30.2
--- NOTE | 2023-10-09 20:32 | CRLHL7_ITS ---
For Patients: As a result of the Century Cures Act, medical imaging exams and procedure reports are released immediately into your electronic medical record. You may view this report before your referring provider. If you have questions, please contact your health care provider. INDICATION: Leg pain and swelling. TECHNIQUE: Ultrasound venous duplex lower right extremity. Compression venous exam was performed using warren-scale, color Doppler, and spectral Doppler analysis. COMPARISON: None. FINDINGS: Deep veins: Sonographic imaging demonstrates the right common femoral, deep femoral, superficial femoral, popliteal, posterior tibial and the contralateral left common femoral veins to be fully compressible with normal color Doppler blood flow. Superficial veins: Greater saphenous vein is fully compressible. No popliteal cyst. IMPRESSION: No DVT in the right lower extremity. Dictated by Lucy Pedro MD @ 10/09/2023 9:38:43 PM (Electronically Signed)
--- NOTE | 2023-10-09 20:32 | ED_ITS ---
HPI - General Adult General Time Seen by Provider: 20:31 Date Seen: 10/09/23 Chief complaint: Edema Stated complaint: Tingly, swollen R foot, 4 days Post Time Seen by Provider: 10/09/23 20:31 Source: patient, family and RN notes reviewed Mode of arrival: ambulatory Limitations: no limitations History of Present Illness HPI narrative: This 28-year-old female is coming in 4 days with right foot swelling and swelling along the right side of the ankle. The swelling makes her foot feel tingly. She can still feel but the swelling makes the sensation feels different. There is no pain in the foot. She denies any trauma. She has had no fevers or chills. No calf pain. No shortness of breath, no chest pain. She is use Tylenol and ibuprofen today. She had a for breech presentation at 36 weeks, baby had low amniotic fluid per Mom. She is trying to breastfeed, they are trying to work with getting him to lab ouch, supplementing with bottles as well as pumping after feeding. This is her 1st baby. 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 She is worried about a blood clot. Related Data Home Medications ?Medication ?Instructions ?Recorded ?Confirmed vitamins no.68-iron 28 1 cap PO QDAY 10/02/22 10/06/23 mg-folate no.6 1 mg-dha 400 mg capsule enoxaparin 40 mg/0.4 mL 40 mg subcut QDAY 03/11/23 10/06/23 subcutaneous syringe (Lovenox) Previous Rx's ?Medication ?Instructions ?Recorded docusate sodium 100 mg capsule 100 mg PO DAILY #60 caps 10/08/23 Allergies Allergy/AdvReac Type Severity Reaction Status Date / Time Sulfa (Sulfonamide Allergy Severe eye Verified 10/03/23 10:05 Antibiotics) swelling from sulfa drops Review of Systems Status of ROS: Reports: 6 or more systems reviewed and unremarkable except as noted in History and below [facility] Medical History delivery ?O60.10X0 - labor with delivery, unspecified trimester, not applicable or unspecified (ICD-10) Antiphospholipid antibody syndrome ?D68.61 - Antiphospholipid syndrome (ICD-10) Bleeding in early ?O20.9 - Hemorrhage in early , unspecified (ICD-10) Transaminitis ?R74.01 - Elevation of levels of liver transaminase levels (ICD-10) Acute conjunctivitis, left eye ?H10.32 - Unspecified acute conjunctivitis, left eye (ICD-10) POTS (postural orthostatic tachycardia syndrome) ?G90.A - Postural orthostatic tachycardia syndrome [POTS] (ICD-10) Surgical History delivery delivered ?O82 - Encounter for delivery without indication (ICD-10) Varicose vein of leg ?I83.90 - Asymptomatic varicose veins of unspecified lower extremity (ICD-10) H/O dilation and curettage ?Z98.890 - Other specified postprocedural states (ICD-10) [place] teeth extracted ?K08.409 - Partial loss of teeth, unspecified cause, unspecified class (ICD- 10) Family History Maternal Grandfather Bladder cancer Maternal Grandmother Multiple sclerosis Family/Other Epilepsy Social History What is your current living situation?: I presently have a place to live Problems where you live: no known problems In the past 12 months, utilities in danger of being shut off: no In past 12 months, lack of transportation kept you from medical appts, meetings, work, or getting things needed for daily living: no How hard is it for you to pay for the very basics like food, housing, medical care, and heating: not applicable In the past 12 mos, have been you worried that your food would run out before you had money to buy more?: never true In the past 12 mos, the food you bought just didn't last and you didn't have money to buy more?: never true Smoking Status: Never smoker How often do you have a drink containing alcohol: never AUDIT-C Alcohol total score: 0 Non-prescribed substance use: denies use How often does anyone, including family, friends and others, physically hurt you : never How often does anyone, including family, friends and others, insult or talk down to you: never How often does anyone, including family, friends and others, threaten you with harm: never How often does anyone, including family, friends and others, scream or curse at you: never Little interest or pleasure in doing things: not at all Feeling down, depressed, or hopeless: not at all Exam Const: Vital Signs, click to edit/add: Vital Signs - 24 hr 10/09/23 20:22 Temperature 98.0 F Pulse Rate [Left P ulse Oximeter] 94 Respiratory Rate 18 Blood Pressure [Ri ght Upper Arm] 157/98 H Pulse Oximetry 97 Oxygen Delivery Me thod Room Air This 28-year-old female is alert, interactive, no apparent distress. Tearful at times. Face atraumatic. Sclera clear. Does have erythema of her left upper eyelid, no drainage, no significant swelling of the periorbital area. Neck is supple, no jugular venous distension. Lungs are clear, good air entry, no wheezing or crackles. CV regular rate and rhythm, no murmur, normal S1-S2, no S3-S4. Indeed the dorsum of her right foot is swollen, extends a little laterally around the lateral malleolus. Neurovascular is intact. She has no calf pain or swelling. The swelling does not extend up into the leg itself. Left foot and leg do not seem to have any edema at this time. There is no evidence of any bruising or petechial changes within the right foot suggestive of trauma or bleeding. Documenting provider has reviewed patient's vital signs: yes Course Course ED Course: Reviewed with patient that it is unlikely that she will have a DVT but would still recommend imaging as I cannot physically tell without it. We did discuss that we do not ultrasound the foot and if there is clot that is not extending up into the leg, we will not see it. She understands if she has progressive swelling with a negative ultrasound tonight that continues to be unilateral, she may need a follow-up ultrasound. We did discuss that there certainly can be fluid status changes even 4 days out after having a . Typically you would see swelling in both extremities. Thus, we will proceed with ultrasound of her right lower extremity. She understands that we are looking for venous clot with in the upper and lower leg. Reevaluation(s) Time of Reevaluation #1: 21:42 Reevaluation #1: Reviewed negative ultrasound for DVT. She is reassured. Discussed signs and symptoms for return. Discharge to home at this time. Vital Signs Vital signs: Initial Vital Signs Temperature 98.0 F 10/09/23 20:22 Temperature Source Temporal Artery Scan 10/09/23 20:22 Pulse Rate 94 10/09/23 20:22 Pulse Rhythm Regular 10/09/23 20:22 Respiratory Rate 18 10/09/23 20:22 Blood Pressure 157/98 H 10/09/23 20:22 Blood Pressure Mean 117 H 10/09/23 20:22 Blood Pressure Position Sitting 10/09/23 20:22 Pulse Oximetry 97 10/09/23 20:22 Oxygen Delivery Method Room Air 10/09/23 20:22 Vital Signs Temperature 98.0 F 10/09/23 20:22 Pulse Rate 94 10/09/23 20:22 Respiratory Rate 18 10/09/23 20:22 Blood Pressure 157/98 H 10/09/23 20:22 Pulse Oximetry 97 10/09/23 20:22 Oxygen Delivery Method Room Air 10/09/23 20:22 Temperature 98.0 F 10/09/23 20:22 Pulse Rate 94 10/09/23 20:22 Respiratory Rate 18 10/09/23 20:22 Blood Pressure 157/98 H 10/09/23 20:22 Pulse Oximetry 97 10/09/23 20:22 Oxygen Delivery Method Room Air 10/09/23 20:22 Medical Decision Making Imaging Data Venous US: Attestation: I have reviewed the pertinent imaging results. Radiologist's impression: Patient: [facility] Facility:?[facility] Patient ID:?[id number] Site Patient ID:?[id number]. Site :?[id number] Study:?US-Extremity Right LEV-10/09/2023 9:26:26 PM Ordering Physician:Nguyễn Fierro Final Report: INDICATION: Leg pain and swelling. TECHNIQUE: Ultrasound venous duplex lower right extremity. Compression venous exam was performed using warren-scale, color Doppler, and spectral Doppler analysis. COMPARISON: None. FINDINGS: Deep veins: Sonographic imaging demonstrates the right common femoral, deep femoral, superficial femoral, popliteal, posterior tibial and the contralateral left common femoral veins to be fully compressible with normal color Doppler blood flow. Superficial veins: Greater saphenous vein is fully compressible. No popliteal cyst. IMPRESSION: No DVT in the right lower extremity. Dictated by Lucy Pedro MD @ 10/09/2023 9:38:43 PM (Electronic Signature) Discharge Plan Discharge Clinical Impression: Localized swelling of right foot Patient Disposition: Home, Self-Care Condition: Stable Instructions: Leg Edema (ED) Additional Instructions: Try to elevate your legs has a much as possible. You may start to see swelling within the left lower extremity. If your right leg is the only leg that is swollen and the swelling is progressing into the calf, do think you should be re-evaluated and consideration for follow-up ultrasound entertained. If you start to develop swelling in the left foot and leg, this is very likely just from fluid status changes from and surgery. Prescriptions: No Action enoxaparin [Lovenox] 40 mg/0.4 mL syringe 40 mg subcut QDAY [id number] no6-dha 28 mg iron- 1 mg-400 mg capsule 1 cap PO QDAY docusate sodium 100 mg Capsule 100 mg PO DAILY Qty: 60 0RF Follow Up/Referrals: Kavya Daniel MD [Primary Care Provider] - Stand Alone Forms: [email or web address] Info Instructions
== END 2023-10-09 21:50 | disposition home or self-care (01) ==
PROVIDERS: Emergency Provider Family Medicine; PCP Family Medicine
DX: R60.9 Edema, unspecified (principal)
CPT/HCPCS: 93971; 99283; 99284

== ENCOUNTER 2023-11-28 14:36 | Outpatient (CLI) | payer OTHER, SELFPAY ==
--- NOTE | 2023-11-28 14:45 | CRLHL7_ITS ---
For Patients: As a result of the Century Cures Act, medical imaging exams and procedure reports are released immediately into your electronic medical record. You may view this report before your referring provider. If you have questions, please contact your health care provider. INDICATION: hemorrhage; 7 weeks . Technique: Transvaginal pelvic ultrasound. FINDINGS: The uterus measures 7 x 8 x 4.3 x 5.5 cm. The endometrial stripe measures 1.2 cm with heterogeneous echotexture. A hyperechoic area measuring 2.4 x 1.8 x 2.6 cm in the fundus involving the endometrium with vascularity; rule out retained products of conception. Hypoechoic area identified in the lower uterine segment within the endometrial cavity; rule out blood clots. The right ovary measures 3.9 x 1.9 x 2.1 cm and the left ovary measures 2.6 x 1.3 x 1.5 cm. Tiny amount of free fluid identified in the pelvic cul-de-sac. Normal left vertebral is bilateral. IMPRESSION: 1. A 2.4 x 1.8 x 2.6 cm hyperechoic area with vascularity identified in the endometrial cavity in the fundus and upper uterine body; rule out retained products of conception. 2. A complex echogenic area lower uterine segment; rule out blood clot. Dictated by Glenn Jung MD @ 12/01/2023 1:20:21 PM (Electronically Signed)
== END 2023-11-28 14:37 | disposition home or self-care (01) ==
PROVIDERS: PCP Family Medicine; Visit Provider Registered Nurse
DX: O72.1 Other immediate postpartum hemorrhage (principal)
CPT/HCPCS: 76830; 76856

== ENCOUNTER 2023-12-04 06:02 | Day surgery (SDC) | payer OTHER, SELFPAY ==
[2023-12-04 06:33] VITALS: BP 127/66; PULSE 69; RESP 16; TEMP 36.7; O2SAT 99; BMI 27.8
[2023-12-04] MEDS: DOXYCYCLINE HYCLATE 100 MG 200 MG PO (06:41)
[2023-12-04] MEDS: SODIUM CHLORIDE 0.9 % (FLUSH) 10 ML SYRINGE IVF (06:41)
[2023-12-04 06:54] LABS: Hemoglobin* 13.8 gm/dL (12.0-16.0)
[2023-12-04 06:55] LABS: Ur HCG Qualitative* Negative (Negative)
[2023-12-04] MEDS: LACTATED RINGERS 1000 ML 1,000 ML 100 ML IV (07:25)
[2023-12-04] MEDS: VASOPRESSIN 20 UNIT/ML INJ INJECTION (08:05)
[2023-12-04] MEDS: SILVER NITRATE APPLICATOR 1 EACH STICK..EA. TOPICAL (08:21)
--- NOTE | 2023-12-04 08:33 | W.PM.H&PU ---
History & Physical Update History & Physical Update H&P Reviewed and patient assessed: No changes noted
[2023-12-04 08:35] VITALS: BP 107/71; PULSE 82; RESP 16; TEMP 36.1; O2SAT 99
[2023-12-04 08:50] VITALS: BP 108/72; PULSE 92; RESP 16; O2SAT 96
[2023-12-04 09:02] VITALS: BP 125/87; PULSE 96; RESP 16; O2SAT 97
--- NOTE | 2023-12-04 09:16 | SUR.OPER ---
deficit= [id number]
[2023-12-04 09:31] VITALS: BP 129/92; PULSE 95; RESP 16; TEMP 36.5; O2SAT 97
--- NOTE | 2023-12-04 10:45 | W.ANESCHARGE ---
Anesthesia Charges Start Date/Time Anesthesia Start Date: 12/04/23 Anesthesia Start Time: 07:16 Stop Date/Time Anesthesia Stop Date: 12/04/23 Anesthesia Stop Time: 08:36
--- NOTE | 2023-12-04 15:43 | W.PM.GYNPROC ---
Procedure Note Date of procedure: 12/04/23 Will [facility] bill your pro fee for this procedure?: Yes Pre-op diagnosis: Suspected retained placental fragment 8 weeks Post-op diagnosis: Same Procedure: Hysteroscopy, hysteroscopic dilation and curettage Anesthesia: MAC Complications: None Surgeon: Anai Stern MD Estimated blood loss (mL): 50 IV fluids (mL): 800 Urine Output (mL): 130 Pathology: specimen obtained, sent to pathology (intrauterine contents) Condition: stable Disposition: same day Findings: 1. On exam under anesthesia, vulva, vagina and cervix are normal in appearance. Bimanual exam showed mobile, retroverted uterus of normal size and dimension. 2. Upon hysteroscopy, endometrial cavity contained abundant material that resembled placenta in the fundal portion of the uterus. She had an appropriately healed incision with a polypoid extension noted from this. Endometrial cavity was normal in shape, and tubal ostia were normal in appearance. Procedure Description: Patient was taken to the operating room with IV running. She was positioned in dorsal lithotomy position with her legs fully supported in Yellofin stirrups. Monitored anesthesia care was administered. She was prepped and draped in the usual sterile fashion. Exam under anesthesia was performed for the above-noted findings. Speculum was inserted. Cervix visualized and grasped along the anterior lip with a single-tooth tenaculum. Cervix was circumferentially injected with a total 10 mL of dilute vasopressin, dilution 20 mL to 50 mL of normal saline. Cervix was serially dilated to accommodate the 7.2 mm TRUCLEAR hysteroscope. This was assembled with saline inflow and outflow in place. The line was flushed of bubbles. The hysteroscope was advanced through the cervix into the endometrial cavity for the above noted findings. The soft tissue plus morcellator was then inserted through the operating channel. Window lock was performed. Under direct visualization, the endometrial cavity was circumferentially curetted with the tissue morcellator. The uterus was free of internal debris at the end of the procedure. The hysteroscope and morcellator were then removed from the uterus. Tenaculum was removed from the anterior lip of cervix. Hemostasis was achieved with silver nitrate. Postoperative debrief was carried out, and I verbalized my request to send specimen to pathology as described above. Patient tolerated procedure well. She was taken to recovery area in stable condition.
== END 2023-12-04 10:02 | disposition home or self-care (01) ==
PROVIDERS: PCP Family Medicine; Visit Provider Obstetrics & Gynecology
PROC: 0UDB8ZZ Extraction of Endometrium, Via Natural or Artificial Opening Endoscopic (ICD-10-PCS; CPT 58558; principal; 2023-12-04 07:15)
DX: O72.2 Delayed and secondary postpartum hemorrhage (principal)
CPT/HCPCS: 58558; 00952; 36415; 81025; 85018; 86850; 86900; 86901; 88305; A9270; C1782; J1100; J1171; J1885; J2250; J2405; J2704; J3010; J7120

== ENCOUNTER 2024-11-22 07:05 | Outpatient (CLI) | payer OTHER, SELFPAY ==
--- NOTE | 2024-11-22 07:15 | CRLHL7_ITS ---
For Patients: As a result of the Century Cures Act, medical imaging exams and procedure reports are released immediately into your electronic medical record. You may view this report before your referring provider. If you have questions, please contact your health care provider. INDICATION: First trimester dating and viability. TECHNIQUE: Ultrasound OB pelvis transabdominal and transvaginal. Real-time warren-scale imaging of the pelvis was performed. COMPARISON: None. FINDINGS: Intrauterine gestation: Single. heart activity (bpm): 123. [place]-rump length: 0.6 cm. Estimated ultrasound age: 6 weeks 3 day. JAZZ by ultrasound: 07/15/2025. Yolk sac: Normal. Perigestational hemorrhage: None. Ovaries and adnexa: Unremarkable. Suggestion of corpus luteal cyst in left ovary. Suspicious pelvic fluid collections: None. IMPRESSION: Single viable intrauterine with estimated gestational age of 6 weeks 3 day and JAZZ of 07/15/2025. Dictated by Ivana Jacobs MD @ 11/22/2024 9:48:44 AM (Electronically Signed)
== END 2024-11-22 07:06 | disposition home or self-care (01) ==
LOC: US 07:06
PROVIDERS: PCP Family Medicine; Visit Provider Physician Assistant
DX: Z34.91 Encounter for supervision of normal pregnancy, unspecified, first trimester (principal); Z3A.01 Less than 8 weeks gestation of pregnancy
CPT/HCPCS: 76817; 82565; 82570; 83021; 84156; 84450; 84460; 84520; 86592; 86703; 86704; 86706; 86762; 86787; 86803; 86850; 87086; 87340; 87491; 87591

== ENCOUNTER 2024-11-28 10:02 | Outpatient (CLI) | payer OTHER, SELFPAY | END 2024-11-28 10:03 | disposition home or self-care (01) | LOC: NFLDREF 17:44 | PROVIDERS: PCP Family Medicine; Referring Provider Family Medicine; Visit Provider Physician Assistant | DX: Z34.91 Encounter for supervision of normal pregnancy, unspecified, first trimester (principal) | CPT/HCPCS: 82570; 84156 ==

== ENCOUNTER 2024-12-16 07:10 | Outpatient (CLI) | payer OTHER, SELFPAY ==
--- NOTE | 2024-12-16 07:15 | CRLHL7_ITS ---
For Patients: As a result of the Century Cures Act, medical imaging exams and procedure reports are released immediately into your electronic medical record. You may view this report before your referring provider. If you have questions, please contact your health care provider. OB ULTRASOUND INDICATION: Recurrent loss. TECHNIQUE: Real time grayscale imaging of the fetus was performed. Transvaginal. Transvaginal imaging performed to better demonstrate the endometrium and ovaries. Surgery: . LMP: 10/08/2024. JAZZ by LMP: 07/15/2025. GA: 9 w, 6 d. Previous US: Yes 11/22/2024. JAZZ by US: 07/15/2025. GA: 6 w, 3 d. CRL: 3.1 cm. 10 w 0 d. JAZZ: 07/14/2025. FHR: 167 BPM. Gestational sac: 5.2 cm. Appears within normal limits. Yolk sac: 4.2 mm. Appears within normal limits. Right ovary: N/V. Left ovary: 4.2 x 3.2 x 3.5 cm. CL. IMPRESSION: 1. Single living intrauterine measures 10 weeks 0 days with sonographic due date 07/14/2025. 2. Small crescentic subchorionic hemorrhage measures 1.8 x 0.4 x 1.7 cm. 3. Simple left ovarian cyst measures 2.8 x 2.5 x 3.0 cm. Dar Wright M.D. Diagnostic Radiologist [email or web address] JULISA/darling hastings/Dictated by: Dar Wright MD @ 12/16/2024 9:19:00 AM (Electronically Signed)
== END 2024-12-16 07:11 | disposition home or self-care (01) ==
LOC: US 07:10
PROVIDERS: PCP Family Medicine; Visit Provider Physician Assistant
DX: N96 Recurrent pregnancy loss (principal); O20.9 Hemorrhage in early pregnancy, unspecified; O34.81 Maternal care for other abnormalities of pelvic organs, first trimester; N83.291 Other ovarian cyst, right side; Z3A.10 10 weeks gestation of pregnancy
CPT/HCPCS: 76817; 84450; 84460